=== PATIENT | female | born 1985 | race Caucasian/White ===

== ENCOUNTER 2016-11-25 19:05 | Emergency (ER) | payer OTHER ==
[2016-11-25 19:24] VITALS: BP 132/83
--- NOTE | 2016-11-25 19:37 | UC ---
Allergic Reaction HPI - HPI Summary HPI Summary: Worsening hives over the past 3 days--takes benadryl without much relief - History of Current Complaint Chief Complaint: UCRash Stated Complaint: HIVES RASHES HOT Time Seen by Provider: 11/25/16 19:28 Hx Obtained From: Patient Hx Last Menstrual Period: 11/13/16 ?: No Onset/Duration: Sudden Onset, Lasting Days, Still Present Severity Initially: Moderate Severity Currently: Moderate Location: Diffuse Character: Pruritus, Hives Aggrevating Factor(s): Nothing Alleviating Factor(s): Nothing Associated Signs And Symptoms: Positive: Other: - no know exposures or changes in products did have a viral illness 1 month ago - Allergies/Home Medications Allergies/Adverse Reactions: Allergies Allergy/AdvReac Type Severity Reaction Status Date / Time Amoxicillin Allergy Swelling Verified 07/29/14 17:57 Of Face,Lips,& Throat Penicillins Allergy Hives Verified 07/29/14 17:57 Sulfa Antibiotics Allergy Rash Verified 07/29/14 17:57 Home Medications: Home Medications Diphenhydramine HCl [Benadryl Allergy] 25 mg PO 11/25/16 [History] PMH/Surg Hx/FS Hx/Imm Hx Previously Healthy: Yes - Surgical History Surgical History: Yes Surgery Procedure, Year, and Place: TONSILECTOMY - Family History Known Family History: Positive: None Family History: no cardiovascular issues in family lineage - Social History Occupation: Unemployed Lives: With Family Alcohol Use: None Substance Use Type: None Smoking Status (MU): Never Smoked Tobacco Review of Systems Constitutional: Negative Skin: Rash - arms and abdomen Eyes: Negative ENT: Negative Respiratory: Negative Cardiovascular: Negative Gastrointestinal: Negative Genitourinary: Negative Motor: Negative Neurovascular: Negative Musculoskeletal: Negative Neurological: Negative Psychological: Negative All Other Systems Reviewed And Are Negative: Yes Physical Exam Triage Information Reviewed: Yes Appearance: Well-Appearing, No Pain Distress, Well-Nourished Vital Signs: Initial Vital Signs Temp 99.2 F 11/25/16 19:21 Pulse 80 11/25/16 19:21 Resp 18 11/25/16 19:21 BP 132/83 11/25/16 19:21 Pulse Ox 100 11/25/16 19:21 Vital Signs Reviewed: Yes Eye Exam: Normal Eyes: Positive: Conjunctiva Clear ENT Exam: Normal ENT: Positive: Normal ENT inspection, Hearing grossly normal, Pharynx normal. Negative: Nasal congestion, Nasal drainage, Trismus, Muffled/hoarse voice Neck exam: Normal Neck: Positive: Supple, Nontender Respiratory Exam: Normal Respiratory: Positive: Chest non-tender, Lungs clear, Normal breath sounds, No respiratory distress, No accessory muscle use, Respiratory distress Cardiovascular Exam: Normal Cardiovascular: Positive: RRR, No Murmur, Pulses Normal, Brisk Capillary Refill Musculoskeletal Exam: Normal Musculoskeletal: Positive: Strength Intact, ROM Intact, No Edema Neurological Exam: Normal Neurological: Positive: Alert, Muscle Tone Normal Psychological Exam: Normal Skin: Positive: rashes - both upper arms and abdomen Allergic Reaction Course/Dx - Course Course Of Treatment: prednisone, pepcid and zyrtec, follow with pcp re-check prn - Differential Dx/Diagnosis Differential Diagnosis/HQI/PQRI: Anaphylaxis, Angioedema, Local Allergic Reaction, Urticaria, Other - viral [place] Provider Diagnoses: Urticaria Discharge - Discharge Plan Condition: Stable Disposition: HOME Prescriptions: Famotidine TAB* [Pepcid TAB*] 20 mg PO BID #10 tab predniSONE TAB* [Deltasone TAB*] 10 mg PO DAILY #20 tab Patient Education Materials: Cetirizine (By mouth), Urticaria (ED) Referrals: [facility] [place] [facility] [Outside] - If Needed Non Staff,Doctor [Primary Care Provider] -
== END 2016-11-25 20:04 | disposition home or self-care (01) ==
LOC: UCEAST 19:05
DX: L50.9 Urticaria, unspecified (principal); Z88.0 Allergy status to penicillin; Z88.2 Allergy status to sulfonamides
CPT/HCPCS: 99212; G0463

== ENCOUNTER 2017-05-31 09:29 | Emergency (ER) | payer OTHER ==
[2017-05-31 10:39] LABS: Hematocrit 40 % (35-47); Hemoglobin 13.8 g/dl (12.0-16.0); Mean Corpuscular HGB Conc 35 g/dl (31-36); Mean Corpuscular Hemoglobin 33 pg (27-31); Mean Corpuscular Volume 96 fL (80-97); Mean Platelet Volume 8 um3 (7.4-10.4); Red Blood Count 4.16 10^6/ul (4.0-5.4); Red Cell Distribution Width 13 % (10.5-15); White Blood Count 4.1 10^3/ul (3.5-10.8)
[2017-05-31 10:50] LABS: ALT 15 U/L (7-52); AST 19 U/L (13-39); Albumin 4.3 g/dL (3.2-5.2); Alkaline Phosphatase 37 U/L (34-104); Anion Gap 6 mmol/L (2-11); BUN/Creatinine Ratio 16.9 (8-20); Blood Urea Nitrogen 12 mg/dL (6-24); C Reactive Protein < 1.00 mg/L (< 5.00); CO2 Carbon Dioxide 28 mmol/L (22-32); Calcium 9.3 mg/dL (8.6-10.3); Chloride 103 mmol/L (101-111); EGFR African American 121.9 (>60); EGFR Non-African American 94.8 (>60); Globulin 3.1 g/dL (2-4); Glucose 86 mg/dL (70-100); Potassium 3.8 mmol/L (3.5-5.0); Sodium 137 mmol/L (133-145); Total Protein 7.4 g/dL (6.4-8.9)
[2017-05-31 12:14] VITALS: BP 120/80
--- NOTE | 2017-05-31 17:56 | ED ---
Libertad Chapa Claudia, scribed for Gallo Lovett MD on 05/31/17 at 1012 . GI/ HPI - HPI Summary HPI Summary: 32 year old female presents to [facility] ED with complaints of bloody stool. Pt denies any rectal pain but notes red blood with mucus during BM this am. Pt notes that this is the second episode of similar Sx but the first time she is seeking medical attention for these Sx. Pt denies any abd pain, NVD, dysuria, constipation but does admit to some back pain. She denies any alleviating or aggravating factors at this time. Pt notes pain as 3/10 on the pain scale. - History of Current Complaint Chief Complaint: EDRectalPain Time Seen by Provider: 05/31/17 09:56 Stated Complaint: GI BLEEDING Hx Obtained From: Patient Onset/Duration: Started Minutes Ago, Still Present Timing: Intermittent Pain Intensity: 3 Location of Pain: Diffuse - BACK PAIN Pain Characteristics: Unable to describe Associated Signs and Symptoms: Positive: Back Pain, Blood w/Stool. Negative: Nausea, Vomiting, Constipation, Diarrhea, Dysuria, Abdominal Pain - Allergy/Home Medications Allergies/Adverse Reactions: Allergies Allergy/AdvReac Type Severity Reaction Status Date / Time Amoxicillin Allergy Swelling Verified 07/29/14 17:57 Of Face,Lips,& Throat Penicillins Allergy Hives Verified 07/29/14 17:57 Sulfa Antibiotics Allergy Rash Verified 07/29/14 17:57 PMH/Surg Hx/FS Hx/Imm Hx Previously Healthy: Yes Endocrine/Hematology History: Denies: Hx Diabetes Cardiovascular History: Denies: Hx Myocardial Infarction - Surgical History Surgery Procedure, Year, and Place: TONSILECTOMY 2014 Infectious Disease History: Yes Infectious Disease History: Reports: Hx of Known/Suspected MRSA Denies: Traveled Outside the [place] in Last 30 Days - Family History Known Family History: Positive: None Negative: Cardiac Disease Family History: no cardiovascular issues in family lineage - Social History Occupation: Unemployed Lives: With Family Alcohol Use: None Substance Use Type: Reports: None Smoking Status (MU): Never Smoked Tobacco Review of Systems Constitutional: Negative Eyes: Negative ENT: Negative Cardiovascular: Negative Respiratory: Negative Gastrointestinal: Other - RECTAL BLEEDING WITH NO RECTAL PAIN Positive: Other - NO CONSTIPATION . Negative: Abdominal Pain, Vomiting, Diarrhea, Nausea Genitourinary: Negative Positive: other. Negative: dysuria Musculoskeletal: Other - BACK PAIN Skin: Negative Neurological: Negative Psychological: Normal All Other Systems Reviewed And Are Negative: Yes Physical Exam - Summary Physical Exam Summary: VITAL SIGNS: Reviewed. GENERAL: Patient is a well-developed and nourished female who is lying comfortable in the stretcher. Patient is not in any acute respiratory distress. HEAD AND FACE: No signs of trauma. No ecchymosis, hematomas or skull depressions. No sinus tenderness. EYES: PERRLA, EOMI x 2, No injected conjunctiva, no nystagmus. EARS: Hearing grossly intact. Ear canals and tympanic membranes are within normal limits. MOUTH: Oropharynx within normal limits. NECK: Supple, trachea is midline, no adenopathy, no JVD, no carotid bruit, no c- spine tenderness, neck with full ROM. CHEST: Symmetric, no tenderness at palpation LUNGS: Clear to auscultation bilaterally. No wheezing or crackles. CVS: Regular rate and rhythm, S1 and S2 present, no murmurs or gallops appreciated. ABDOMEN: Soft, non-tender. No signs of distention. No rebound no guarding, and no masses palpated. Bowel sounds are normal. EXTREMITIES: FROM in all major joints, no edema, no cyanosis or clubbing. NEURO: Alert and oriented x 3. No acute neurological deficits. Speech is normal and follows commands. SKIN: Dry and warm Rectal Exam is supervised by Female Nurse: No external hemorrhoids, no gross blood with no pain. Triage Information Reviewed: Yes Vital Signs On Initial Exam: Initial Vitals Temp Pulse Resp BP Pulse Ox 98.9 F 87 20 155/92 99 05/31/17 09:33 05/31/17 09:33 05/31/17 09:33 05/31/17 09:33 05/31/17 09:33 Vital Signs Reviewed: Yes - [place] Coma Scale Coma Scale Total: 15 Diagnostics - Vital Signs Vital Signs Temp Pulse Resp BP Pulse Ox 05/31/17 09:43 83 144/77 99 05/31/17 09:33 98.9 F 87 20 155/92 99 - Laboratory Lab Results: Lab Results 05/31/17 05/31/17 Range/Units 10:21 10:21 WBC 4.1 (3.5-10.8) 10^3/ul RBC 4.16 (4.0-5.4) 10^6/ul Hgb 13.8 (12.0-16.0) g/dl Hct 40 (35-47) % MCV 96 (80-97) fL MCH 33 H (27-31) pg MCHC 35 (31-36) g/dl RDW 13 (10.5-15) % Plt Count 158 (150-450) 10^3/ul MPV 8 (7.4-10.4) um3 Neut % (Auto) 63.5 (38-83) % Lymph % (Auto) 27.5 (25-47) % Mineral % (Auto) 7.4 (1-9) % Eos % (Auto) 0.8 (0-6) % Baso % (Auto) 0.8 (0-2) % Absolute Neuts (auto) 2.6 (1.5-7.7) 10^3/ul Absolute Lymphs (auto) 1.1 (1.0-4.8) 10^3/ul Absolute Monos (auto) 0.3 (0-0.8) 10^3/ul Absolute Eos (auto) 0 (0-0.6) 10^3/ul Absolute Basos (auto) 0 (0-0.2) 10^3/ul Absolute Nucleated RBC 0.01 10^3/ul Nucleated RBC % 0.2 Sodium 137 (133-145) mmol/L Potassium 3.8 (3.5-5.0) mmol/L Chloride 103 (101-111) mmol/L Carbon Dioxide 28 (22-32) mmol/L Anion Gap 6 (2-11) mmol/L BUN 12 (6-24) mg/dL Creatinine 0.71 (0.51-0.95) mg/dL Est GFR ( Amer) 121.9 (>60) Est GFR (Non-Af Amer) 94.8 (>60) BUN/Creatinine Ratio 16.9 (8-20) Glucose 86 (70-100) mg/dL Calcium 9.3 (8.6-10.3) mg/dL Total Bilirubin 1.00 (0.2-1.0) mg/dL AST 19 (13-39) U/L ALT 15 (7-52) U/L Alkaline Phosphatase 37 (34-104) U/L C-Reactive Protein < 1.00 (< 5.00) mg/L Total Protein 7.4 (6.4-8.9) g/dL Albumin 4.3 (3.2-5.2) g/dL Globulin 3.1 (2-4) g/dL Albumin/Globulin Ratio 1.4 (1-3) Result Diagrams: 05/31/17 10:21 05/31/17 10:21 Lab Statement: Any lab studies that have been ordered have been reviewed, and results considered in the medical decision making process. Re-Evaluation - Re-Evaluation 1 Re-Evaluation Time: 11:57 Comment: Pt is updated with lab results. The pt is agreeable with the plan to be d/c home and follow-up with PCP GIGU Course/Dx - Course Course Of Treatment: 32 year old female presents to [facility] ED with complaints of bloody stool. Pt denies any rectal pain but notes red blood with mucus during BM this am. Pt notes that this is the second episode of similar Sx but the first time she is seeking medical attention for these Sx. Pt denies any abd pain , NVD, dysuria, constipation but does admit to some back pain. She denies any alleviating or aggravating factors at this time. Pt notes pain as 3/10 on the pain scale. Assessment/Plan: Blood work with in normal limits. Occult blood is neg. The pt has no other complaints. Denies ny abd pain, NVD. Pt reports that she has intermittent rectal bleed however the H&H is stable. Therefore the pt will be d/ c home with follow-up with GI. She was recommended to come back if she develops any fever, chills,. Increase in rectal bleed, dizziness, SOB. 32 year old female presents to [facility] ED with complaints of bloody stool. Pt denies any rectal pain but notes red blood with mucus during BM this am. Pt notes that this is the second episode of similar Sx but the first time she is seeking medical attention for these Sx. Pt denies any abd pain, NVD, dysuria, constipation but does admit to some back pain. She denies any alleviating or aggravating factors at this time. Pt notes pain as 3/10 on the pain scale. - Diagnoses Provider Diagnoses: Rectal bleed Discharge - Discharge Plan Condition: Stable Disposition: HOME Patient Education Materials: Rectal Bleeding (ED) Referrals: Cat HOLLINS,Agatha Martins [Primary Care Provider] - 1 Week Kiran Ludwig MD [Medical Doctor] - 1 Week The documentation as recorded by the Libertad morataya Claudia accurately reflects the service I personally performed and the decisions made by , Gallo Lovett MD.
== END 2017-05-31 12:27 | disposition home or self-care (01) ==
LOC: ED 09:29
DX: K62.5 Hemorrhage of anus and rectum (principal); M54.9 Dorsalgia, unspecified
CPT/HCPCS: 36415; 80053; 82270; 85025; 86140; 99282